=== PATIENT | male | born 1990 ===

== ENCOUNTER 2017-09-10 11:43 | Emergency (ER) | payer OTHER ==
[~2017-09-10] VITALS: Ht 144.8 cm; Wt 46.7 kg
== END 2017-09-10 20:48 | disposition home or self-care (01) ==
LOC: ER 11:43
DX: K52.9 Noninfective gastroenteritis and colitis, unspecified (principal)

== ENCOUNTER 2020-01-09 14:49 | Emergency (ER) | payer OTHER ==
[~2020-01-09] VITALS: Ht 144.8 cm; Wt 47.6 kg
[2020-01-09] MEDS ORDERED: CANASA1000 MG (14:54)
== END 2020-01-09 18:02 | disposition home or self-care (01) ==
LOC: ER 14:49
DX: S30.0XXA Contusion of lower back and pelvis, initial encounter (principal); M62.830 Muscle spasm of back; V49.9XXA Car occupant (driver) (passenger) injured in unspecified traffic accident, initial encounter; Y93.89 Activity, other specified; Y92.488 Other paved roadways as the place of occurrence of the external cause; Y99.8 Other external cause status